=== PATIENT | male | born 1970 | race Hispanic/Latino ===

== ENCOUNTER 2022-11-01 09:03 | Observation (INO) | payer OTHER ==
[~2022-11-01 09:03] MED LIST: AMLODIPINE BESYL5 MG PO; TYLENOL EXTRA500 MG PO; VASCEPA1 GM PO
[2022-11-01] MEDS ORDERED: CELECOXIB 200 MG CAP ONE (10:15)
[2022-11-01] MEDS ORDERED: GABAPENTIN 300 MG CAP ONE (10:15)
[2022-11-01] MEDS ORDERED: DEXAMETHASONE SOD PHOS 10 MG/1 ML VIAL ONE (10:15)
[2022-11-01] MEDS ORDERED: CEFAZOLIN SODIUM 2 GM ONE (10:16)
[2022-11-01] MEDS ORDERED: LACTATED RINGER'S 1,000 ML ONE (10:16)
[2022-11-01] MEDS ORDERED: TRANEXAMIC ACID 10 ML ONE ×2 (10:45→11:14)
[2022-11-01] MEDS ORDERED: SODIUM CHLORIDE 0.9% 500ML 500 ML ONE (10:45)
[2022-11-01] MEDS ORDERED: Vancomycin IV 1,000 MG ONE (10:45)
[2022-11-01] MEDS ORDERED: ROPIVACAINE 0.5% 5 MG/ML 30 ML SDV ONE ×2 (11:05→13:38)
[2022-11-01] MEDS ORDERED: DEXAMETHASONE SOD PHOS INJ 4 MG/ML SDV ONE (12:44)
[2022-11-01] MEDS ORDERED: GLYCOPYRROLATE INJ 0.2 MG/ML VIAL ONE (12:44)
[2022-11-01] MEDS ORDERED: SEVOFLURANE INHAL SOLN 250 ML PEN BTL ONE (12:44)
[2022-11-01] MEDS ORDERED: NEOSTIGMINE 1 MG/ML 10ML VIAL ONE (12:44)
[2022-11-01] MEDS ORDERED: ROCURONIUM BROMIDE 10 MG/ML 5ML VIAL IV ONE (12:44)
[2022-11-01] MEDS ORDERED: ONDANSETRON HCL INJ 2MG/ML 2ML 2 MG/ML VIAL ONE (12:44)
[2022-11-01] MEDS ORDERED: POVIDONE IODINE 0.05% 0.05 % ML PO ONE (12:44)
[2022-11-01] MEDS ORDERED: LIDOCAINE HCL 2% LOCAL INJ 5 ML SDV VIAL INJ ONE (12:44)
[2022-11-01] MEDS ORDERED: EPHEDRINE SULFATE INJ 50 MG/ML VIAL ONE (12:44)
[2022-11-01] MEDS ORDERED: PROPOFOL IV EMULSION 10 MG/ML 20 ML VIAL ONE (12:44)
[2022-11-01] MEDS ORDERED: MIDAZOLAM HCL 2 MG/2 ML VIAL ONE (13:00)
[2022-11-01] MEDS ORDERED: FENTANYL CITRATE/PF 100MCG/2 ML INJ ONE ×2 (13:00→13:06)
[2022-11-01] MEDS ORDERED: HYDROMORPHONE 1MG/1ML INJ ONE (13:08)
[2022-11-01] MEDS ORDERED: HYDROCODONE/APAP 5MG-325MG TAB PO PRN (13:30)
[2022-11-01] MEDS ORDERED: ONDANSETRON HCL INJ 2MG/ML 2ML 2 MG/ML VIAL IV PRN (13:30)
[2022-11-01] MEDS ORDERED: HYDROCODONE/APAP 7.5MG-325MG 1 EA TAB PO PRN (13:30)
[2022-11-01] MEDS ORDERED: ACETAMINOPHEN 650 MG SUPP PR PRN (13:30)
[2022-11-01] MEDS ORDERED: DIPHENHYDRAMINE HCL INJ 50 MG/ML VIAL IV PRN (13:30)
[2022-11-01] MEDS ORDERED: DOCUSATE SODIUM 100 MG CAP PO PRN (13:30)
[2022-11-01] MEDS: FENTANYL CITRATE/PF 100MCG/2 ML INJ ONE ×2 (13:55→14:05)
[2022-11-01] MEDS: HYDROCODONE/APAP 7.5MG-325MG 1 EA TAB ONE (15:00)
[2022-11-01 17:00] VITALS: BP 133/78; PULSE 82; RESP 14; O2SAT 97
[2022-11-01] MEDS ORDERED: ASPIRIN 325 MG TAB PO SCH (17:00)
[2022-11-01] MEDS ORDERED: CELECOXIB 100 MG CAP PO SCH (17:00)
[2022-11-01] MEDS ORDERED: SODIUM CHLORIDE 0.9% 1000ML 1,000 ML IV SCH (18:30)
[2022-11-01] MEDS ORDERED: ZOLPIDEM TARTRATE 5 MG TAB PO PRN (21:00)
[2022-11-02] MEDS ORDERED: ACETAMINOPHEN 1000 MG/100 ML IV PRN (13:30)
== END 2022-11-01 17:18 | disposition home health service (06) ==
LOC: OR 09:03 → PACU V 13:18
PROVIDERS: ADMIT Specialist; ATTEND Specialist
DX: M16.12 Unilateral primary osteoarthritis, left hip (principal); I10 Essential (primary) hypertension; E78.2 Mixed hyperlipidemia; F17.210 Nicotine dependence, cigarettes, uncomplicated; Z79.899 Other long term (current) drug therapy; Z01.812 Encounter for preprocedural laboratory examination
CPT/HCPCS: 72170; 86850; 86900; 86920; G0378; J0171; J0690; J1100; J1170; J2001; J2250; J2405; J2710; J2795; J3370; J7040